=== PATIENT | female | born 2000 | race Two or more races ===

== ENCOUNTER 2020-01-14 10:52 | Emergency (ER) | payer OTHER, SELFPAY ==
--- NOTE | ~2020-01-14 | XR_ITS ---
EXAMINATION: XR ankle RT min 3V EXAM DATE: 01/14/2020 11:20 INDICATION: trauma 4 days ago fell in hole/pain med lateral . Initial encounter. TECHNIQUE: Right ankle frontal, lateral and oblique projections obtained and reviewed. There is no p rior study for comparison. FINDINGS: The right ankle mortise appears intact. There are no acute fractures or dislocations iden tified. There is no subcutaneous gas. The soft tissue is unremarkable. There are no radiopaque fo reign bodies. IMPRESSION: No acute osseous findings. Reviewed, dictated and finalized at location A. TIONAL ANALYST IMPRESSION: No acute osseous findings.
--- NOTE | 2020-01-14 10:56 | ED.LOWEXIN ---
HPI - Extremity Injury (Lower) General Chief Complaint: Extremity Injury, Lower Stated Complaint: right ankle pain Time Seen by Provider: 01/14/20 10:57 Source: patient and RN notes reviewed History of Present Illness HPI Narrative: Patient is a 19-year-old female that presents the urgent care with complaints of right ankle pain extending into the top of the right foot. Patient states that she rolled her ankle in a hole on the sidewalk outside of work on . Patient states this is not Workmen's Comp. related. States that she took 1 dose of ibuprofen yesterday for the swelling but otherwise has not continuously taken anything for pain. Patient denies of any other injuries from the incident. No other acute complaints. No acute distress noted. Patient ambulating. Patient aware of the plan of care. Some parts of this dictation were generated by voice recognition software and may contain typographical and/or grammatical inaccuracies. Related Data Home Medications Medication Instructions Recorded Confirmed ferrous sulfate 325 mg PO DAILY 01/14/20 01/14/20 levonorgestrel [Mirena] 1 device INTRAUTERINE ONCE 01/14/20 01/14/20 metformin 1,000 mg PO BID 01/14/20 01/14/20 phentermine 37.5 mg PO DAILY 01/14/20 01/14/20 spironolactone 50 mg PO BID 01/14/20 01/14/20 Allergies Allergy/AdvReac Type Severity Reaction Status Date / Time penicillin V Allergy Unknown Verified 02/08/12 09:27 Penicillins Allergy Unknown Unverified 05/19/15 08:34 tree nut Allergy Unknown Unverified 05/19/15 08:34 Review of Systems Review of Systems: Narrative: CONSTITUTIONAL: Denies fever, chills, or sweats. EYES: Denies visual changes, redness, or discharge. ENT: Denies rhinorrhea, congestion, sore throat, or otalgia. CARDIOVASCULAR: Denies chest pain, palpitations, or edema. RESPIRATORY: Denies cough or dyspnea. GASTROINTESTINAL: Denies abdominal pain, nausea, vomiting, or diarrhea. GENITOURINARY: Denies dysuria or hematuria. SKIN: Denies rash or itching. MUSCULOSKELETAL: Reports of right ankle pain and swelling. NEUROLOGIC: Denies headache, numbness, or weakness. All other systems reviewed are negative, except as documented in HPI. REPLACED BY [facility] Family History Family History (Updated 12/11/12 @ 09:27 by DOCTOR UNKNOWN) Other Diabetes mellitus Family history of arthritis Hypertension Social History Social History Smoking status: Never smoker Alcohol intake: never Comments At the time of my signature, I reviewed and agree with the nursing past medical, surgical, social, and family history. There is no relevant family history pertinent to the patient complaint. Exam Narrative: Exam Narrative: GENERAL: This is a well-nourished, well-developed patient, in no apparent distress. HEAD: normocephalic, atraumatic. EYES: PERRL. Sclera clear/white. Vision is grossly intact. EARS: External ears normal NOSE: External nose normal with no obvious nasal discharge, nares without redness, no rhinorrhea. THROAT: Mucous membranes moist NECK: Neck supple SKIN: warm, intact with no suspicious lesions or rash, good texture and turgor. NEURO: awake, alert, and oriented to person, place and time. There were no obvious focal neurologic abnormalities. EXTREMITIES: No obvious deformity to the right lower extremity. Very mild lateral malleolus edema and tenderness to both the lateral and medial aspect. Positive strong right pedal pulse with capillary refill less than 2 seconds. Range of motion within normal limits. Course Vital Signs Vital signs: Vital Signs Temperature 97.7 F 01/14/20 11:05 Pulse Rate 84 01/14/20 11:05 Respiratory Rate 18 01/14/20 11:05 Blood Pressure 130/72 01/14/20 11:05 Pulse Oximetry 98 01/14/20 11:05 Temperature 97.7 F 01/14/20 11:05 Pulse Rate 84 01/14/20 11:05 Respiratory Rate 18 01/14/20 11:05 Blood Pressure 130/72 01/14/20 11:05 Pulse Oximetry 98 01/14/20 11:05 Reviewed [facility] -
[2020-01-14 11:05] VITALS: BP 130/72; PULSE 84; RESP 18; TEMP 36.5; O2SAT 98
== END 2020-01-14 11:35 | disposition home or self-care (01) ==
PROVIDERS: Emergency Provider Nurse Practitioner Family; PCP Emergency Medicine
DX: S93.401A Sprain of unspecified ligament of right ankle, initial encounter (principal); S96.911A Strain of unspecified muscle and tendon at ankle and foot level, right foot, initial encounter; X50.9XXA Other and unspecified overexertion or strenuous movements or postures, initial encounter; D64.9 Anemia, unspecified; E28.2 Polycystic ovarian syndrome
CPT/HCPCS: 73610; 99213; G0463

== ENCOUNTER 2020-03-13 08:22 | Emergency (ER) | payer OTHER, SELFPAY ==
--- NOTE | 2020-03-13 08:39 | ED.URI ---
HPI - URI/Sore Throat General Chief Complaint: Upper Respiratory Infection Stated Complaint: Sore Throat Time Seen by Provider: 03/13/20 08:40 Source: patient Mode of arrival: ambulatory Limitations: no limitations History of Present Illness HPI Narrative: Chente Duncan is a 19 yo female with a PMH of PCOS, who comes to [facility] with severe sore throat and difficulty swallowing that started a day ago. She stated that she was congested yesterday but that is cleared up. She is unaware of any exposure to Covid and has a history of having frequent strep throat Plan is to swab her for strep throat but this is negative off her Covid test Related Data Home Medications Medication Instructions Recorded Confirmed ferrous sulfate 325 mg PO DAILY 01/14/20 03/13/20 metformin 1,000 mg PO BID 01/14/20 03/13/20 spironolactone 50 mg PO BID 01/14/20 03/13/20 levonorgestrel [Mirena] 1 device INTRAUTERINE ONCE 03/13/20 03/13/20 Allergies Allergy/AdvReac Type Severity Reaction Status Date / Time penicillin V Allergy Unknown Hives Verified 03/13/20 08:33 Penicillins Allergy Unknown Hives Verified 03/13/20 08:33 tree nut Allergy Unknown Anaphylaxis Verified 03/13/20 08:33 strawberry Allergy Itching Verified 03/13/20 08:33 Review of Systems Review of Systems: Narrative: CONSTITUTIONAL: Had fever, chills, sweats. EYES: Denies visual changes, redness, discharge. ENT: Denies rhinorrhea, congestion, has sore throat, otalgia. CARDIOVASCULAR: Denies chest pain, palpitations, edema. RESPIRATORY: Denies dyspnea, wheezing, cough GASTROINTESTINAL: Denies abdominal pain, nausea, vomiting, diarrhea. GENITOURINARY: Denies dysuria, hematuria, abnormal discharge SKIN: Denies rash or itching. NEUROLOGIC: Denies numbness, or focal weakness. PSYCHIATRIC: Denies anxiety or depression. [facility] Past Medical History Medical History Asthma Borderline diabetes mellitus Cubital tunnel syndrome Morbid (severe) obesity due to excess calories PCOS (polycystic ovarian syndrome) Surgical History Surgical History History of cholecystectomy 2013 S/P cubital tunnel release 2013 and 2014 Family History Family History Mother Celiac disease Other Diabetes mellitus Family history of arthritis Hypertension Social History Social History Social History: Single Smoking status: Never smoker Alcohol intake: current Substance use: never Substance use type: does not use Gender identity (if verbalized by the patient): Female Comments At time of signature, I agree with nursing past medical, surgical, social and family history. There is no relevant family history pertinent to the presenting complaint. Exam Narrative: Exam Narrative: GENERAL: This is a well-nourished, well-developed patient, in mild distress. HEAD: normocephalic, atraumatic. EYES: Sclera clear/white. Vision is grossly intact. EARS: External ears normal, auditory canals erythema, no serous drainage. Hearing grossly intact. NOSE: External nose normal without nasal discharge, nares without redness, no rhinorrhea. THROAT: Mucous membranes moist, posterior pharynx erythema with mild edema, bilateral submandibular lymph nodes NECK: Neck supple, tender CARDIOVASCULAR: Regular rate and rhythm without murmurs, gallops, or rubs. RESPIRATORY: Clear to auscultation. Breath sounds equal bilaterally. No wheezes, rales, or rhonchi. GASTROINTESTINAL: Abdomen soft, non-tender, SKIN: warm, intact with no suspicious lesions or rash, good texture and turgor. NEURO: awake, alert, and oriented to person, place and time. There were no obvious focal neurologic abnormalities. Steady gait EXTREMITIES: Normal range of motion. BACK: Nontender without deformity Course Course
[2020-03-13 08:41] VITALS: BP 113/63; PULSE 93; RESP 18; TEMP 36.5; O2SAT 99
== END 2020-03-13 09:30 | disposition home or self-care (01) ==
PROVIDERS: Emergency Provider Nurse Practitioner; PCP Family Medicine
DX: U07.1 COVID-19 (principal); J45.909 Unspecified asthma, uncomplicated; E28.2 Polycystic ovarian syndrome; E66.01 Morbid (severe) obesity due to excess calories; R73.03 Prediabetes
CPT/HCPCS: 87081; 87426; 87880; 99213; C9803; G0463

== ENCOUNTER 2020-03-17 21:26 | Emergency (ER) | payer OTHER, SELFPAY ==
[2020-03-17] VITALS (14 sets, daily range): BP systolic 116–151; BP diastolic 76–121; PULSE 93–104; RESP 18–35; TEMP 37.3; O2SAT 96–98
--- NOTE | ~2020-03-17 | XR_ITS ---
EXAMINATION: XR chest 1V portable INDICATION: Increasing shortness of breath, fever, COVID 19 TECHNIQUE: Portable AP chest at 2300 hours COMPARISON: 04/22/2016 FINDINGS: There are patchy airspace opacities throughout all lung zones. No pleural effusion or pneum othorax is identified. The cardiomediastinal silhouette is normal. IMPRESSION: 1. Diffuse lung disease, likely pneumonia. Reviewed, dictated and finalized at location A. ORY TUTOR
--- NOTE | 2020-03-17 21:49 | PC.NURSE ---
resting on stretcher. patient here with increased dyspnea. (+) covid on 03/13/20. low grade fevers. see initial assessment. taking tylenol at home. alert. oriented. no distress noted. on desk monitor. has call light in reach. waiting for further orders.
--- NOTE | 2020-03-17 23:16 | PC.NURSE ---
respiratory in room now. ABG's ordered. report given to Hussein REDDING.
[2020-03-17 23:24] LABS: Alveolar/Arterial O2 Gradient 27.3 mmHg; Base Excess ABG 0.3 mEq/l (+/-2.0); Device ROOM AIR; Fractional Inspired Oxygen 21 %; HCO3 ABG 24.2 mEq/l (22.0-26.0); Modified Allen's Test Pass; Oxygen Content ABG 20.6 %vol (16.0-22.0); Oxyhemoglobin 95.2 % THb (90.0-100.0); PCO2 ABG 36.8 mmHg (35.0-45.0); PO2 ABG 78.4 mmHg (80.0-100.0); PO2 FiO2 Ratio Arterial Blood 3.73 %; Site Drawn LEFT RADIAL; Total Hemoglobin 15.4 g/dL (12.0-18.0); pH ABG 7.435 (7.350-7.450)
--- NOTE | 2020-03-17 23:29 | ED.SOB ---
HPI - SOB/Dyspnea General Chief Complaint: Shortness of Breath/Dyspnea Stated Complaint: Covid+ shortness of breath/fever Time Seen by Provider: 03/17/20 22:46 Source: patient Mode of arrival: ambulatory Limitations: no limitations History of Present Illness HPI Narrative: 19 years old white female presents with shortness of breath for the last few days. Patient had Covid symptoms and March 11, positive Covid test March 12, was seen at urgent care and was started on Zithromax, albuterol inhaler, and dexamethasone. Patient reports that her shortness of breath is not getting better. Patient denies any nausea, vomiting, diarrhea, headache, chest pain or back pain. Patient works in [employer] business Related Data Home Medications Medication Instructions Recorded Confirmed ferrous sulfate 325 mg PO DAILY 01/14/20 03/13/20 metformin 1,000 mg PO BID 01/14/20 03/13/20 spironolactone 50 mg PO BID 01/14/20 03/13/20 levonorgestrel [Mirena] 1 device INTRAUTERINE ONCE 03/13/20 03/13/20 Allergies Allergy/AdvReac Type Severity Reaction Status Date / Time penicillin V Allergy Unknown Hives Verified 03/17/20 21:28 Penicillins Allergy Unknown Hives Verified 03/17/20 21:28 tree nut Allergy Unknown Anaphylaxis Verified 03/17/20 21:28 strawberry Allergy Itching Verified 03/17/20 21:28 Review of Systems Review of Systems: Narrative: CONSTITUTIONAL: Denies fever, chills, or sweats. EYES: Denies visual changes, redness, or discharge. ENT: Denies rhinorrhea, congestion, sore throat, or otalgia. CARDIOVASCULAR: Denies chest pain, palpitations, or edema. RESPIRATORY: Denies cough or dyspnea. GASTROINTESTINAL: Denies abdominal pain, nausea, vomiting, or diarrhea. GENITOURINARY: Denies dysuria or hematuria. SKIN: Denies rash or itching. MUSCULOSKELETAL: Denies back pain, joint pain, or myalgia. NEUROLOGIC: Denies headache, numbness, or weakness. PSYCHIATRIC: Denies anxiety or depression. [facility] Past Medical History Medical History Asthma Borderline diabetes mellitus Cubital tunnel syndrome Morbid (severe) obesity due to excess calories PCOS (polycystic ovarian syndrome) Surgical History Surgical History History of cholecystectomy 2013 S/P cubital tunnel release 2012 and 2013 Family History Family History Mother Celiac disease Other Diabetes mellitus Family history of arthritis Hypertension Social History Social History Social History: Single Smoking status: Never smoker Alcohol intake: current Substance use: never Substance use type: does not use Gender identity (if verbalized by the patient): Female Exam Narrative: Exam Narrative: General appearance: Well-developed, well-nourished Skin: Normal color Head: Normocephalic, nontraumatic Eyes: Clear conjunctiva ENT: Oropharynx normal, ears normal, nose normal Neck: Supple, nontender Chest and respiratory: Airway patent, no respiratory distress, no accessory muscle use few scattered rhonchi bilaterally Heart: Regular rate/rhythm Abdomen: Soft, nontender, no organomegaly, quiet bowel sounds Vascular: Normal peripheral pulses, normal capillary refill. Musculoskeletal: Normal range of motion, nontender back Neurologic: Alert and oriented ?3, WIRE MACHINE OPERATOR is normal as tested, no gross motor deficit Course Course Emergency Course: Stable Vital Signs Vital signs: Vital Signs Temperature 37.3 C 03/17/20 21:37 Pulse Rate 100 03/17/20 21:37 Respiratory Rate 18 03/17/20 21:37
[2020-03-18 00:10] VITALS: BP 138/79; PULSE 96; RESP 20; TEMP 36.6; O2SAT 97
== END 2020-03-18 00:11 | disposition home or self-care (01) ==
PROVIDERS: Emergency Provider Emergency Medicine; PCP Family Medicine
DX: U07.1 COVID-19 (principal); J12.82 Pneumonia due to coronavirus disease 2019; J45.909 Unspecified asthma, uncomplicated; R73.03 Prediabetes; E28.2 Polycystic ovarian syndrome; E66.01 Morbid (severe) obesity due to excess calories; Z68.43 Body mass index [BMI] 50.0-59.9, adult; Z79.84 Long term (current) use of oral hypoglycemic drugs
CPT/HCPCS: 36600; 71045; 82805; 99283

== ENCOUNTER 2020-04-11 20:34 | Emergency (ER) | payer OTHER, SELFPAY ==
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
[2020-04-11 20:50] VITALS: BP 137/68; PULSE 71; RESP 18; TEMP 36.2; O2SAT 99
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
[2020-04-11] MEDS: IBUPROFEN 400 MG TABLET 800 MG PO (21:45)
[2020-04-11] MEDS: methocarbamoL 750 MG TABLET PO (21:46)
[2020-04-12 00:11] VITALS: BP 129/82; PULSE 80; RESP 18; O2SAT 99
== END 2020-04-12 00:13 | disposition home or self-care (01) ==
PROVIDERS: Emergency Provider Emergency Medicine; PCP Family Medicine
DX: S13.4XXA Sprain of ligaments of cervical spine, initial encounter (principal); J45.909 Unspecified asthma, uncomplicated; R73.03 Prediabetes; E66.01 Morbid (severe) obesity due to excess calories; Z68.43 Body mass index [BMI] 50.0-59.9, adult; E28.2 Polycystic ovarian syndrome; Z79.84 Long term (current) use of oral hypoglycemic drugs; V48.6XXA Car passenger injured in noncollision transport accident in traffic accident, initial encounter
CPT/HCPCS: 72040; 99283; A9270

== ENCOUNTER → 2020-05-01 10:54 | Outpatient (CLI) | payer OTHER, SELFPAY ==
--- NOTE | ~2020-05-01 | XR_ITS ---
EXAMINATION: XR chest 2V DATE: 05/01/2020 11:07 INDICATION: Pneumonia, unspecified organism. TECHNIQUE: Frontal and lateral views of the chest were obtained. COMPARISON: Chest single view 03/17/2020, CT abdomen and pelvis 05/07/2015 FINDINGS: The chest demonstrates clear lungs without pneumonia, pleural effusion, or pneumothorax. Th e heart size is normal. IMPRESSION: 1. No acute cardiopulmonary disease. Reviewed, dictated and finalized at location A. DATABASE DEVELOPER
== END ==
PROVIDERS: PCP Family Medicine; Visit Provider Family Medicine
DX: J18.9 Pneumonia, unspecified organism (principal)
CPT/HCPCS: 71046

== ENCOUNTER 2020-06-23 08:24 | Outpatient (CLI) | payer OTHER, SELFPAY | END 2020-06-23 08:25 | disposition home or self-care (01) | LOC: ANHCOVIDVC 08:24 | PROVIDERS: PCP Family Medicine | DX: Z23 Encounter for immunization (principal) | CPT/HCPCS: 0001A; 91300 ==

== ENCOUNTER 2020-07-14 08:17 | Outpatient (CLI) | payer OTHER, SELFPAY | END 2020-07-14 08:18 | disposition home or self-care (01) | LOC: ANHCOVIDVC 08:18 | PROVIDERS: PCP Family Medicine | DX: Z23 Encounter for immunization (principal) | CPT/HCPCS: 0002A; 91300 ==

== ENCOUNTER 2020-09-17 15:08 | Emergency (ER) | payer OTHER, SELFPAY ==
[2020-09-17 15:18] VITALS: BP 120/76; PULSE 78; RESP 16; TEMP 36.8; O2SAT 99
--- NOTE | 2020-09-17 16:01 | ED.URI ---
HPI - URI/Sore Throat General Chief Complaint: Upper Respiratory Infection Stated Complaint: sore throat History of Present Illness HPI Narrative: Record this is a 20-year-old female comes in complaining of a sore throat states that she has had it for approximately 24 hours. Patient states that yesterday she had allergic reaction took some medicine and her symptoms subsided but when she woke up this morning her sore throat was worse Related Data Home Medications Medication Instructions Recorded Confirmed ferrous sulfate 325 mg PO DAILY 01/14/20 04/25/20 metformin 1,000 mg PO BID 01/14/20 04/25/20 spironolactone 50 mg PO BID 01/14/20 04/25/20 levonorgestrel [Mirena] 1 device INTRAUTERINE ONCE 03/13/20 04/25/20 meloxicam 15 mg tablet 15 mg PO BID tablet 04/21/20 04/25/20 fluticasone propion-salmeterol INHALATION 09/17/20 [Advair Diskus] Allergies Allergy/AdvReac Type Severity Reaction Status Date / Time penicillin V Allergy Unknown Hives Verified 04/21/20 10:57 Penicillins Allergy Unknown Hives Verified 04/21/20 10:57 tree nut Allergy Unknown Anaphylaxis Verified 04/21/20 10:57 strawberry Allergy Itching Verified 04/21/20 10:57 Review of Systems Review of Systems: Narrative: CONSTITUTIONAL: Denies fever, chills, or sweats. EYES: Denies visual changes, redness, or discharge. ENT: Denies rhinorrhea, congestion, reports sore throat, or otalgia. CARDIOVASCULAR:Denies chest pain, palpitations, or edema. RESPIRATORY: Denies cough or dyspnea. GASTROINTESTINAL: Denies abdominal pain, nausea, vomiting, or diarrhea. GENITOURINARY: Denies dysuria or hematuria. SKIN:[Denies rash or itching. MUSCULOSKELETAL:Denies back pain, joint pain, or myalgia. NEUROLOGIC: Denies headache, numbness, or weakness. PSYCHIATRIC:Denies anxiety or depression [facility] Past Medical History Medical History Asthma Borderline diabetes mellitus Cubital tunnel syndrome Morbid (severe) obesity due to excess calories PCOS (polycystic ovarian syndrome) Surgical History Surgical History History of cholecystectomy 2013 S/P cubital tunnel release 2013 and 2014 Family History Family History Mother Celiac disease Other Diabetes mellitus Family history of arthritis Hypertension Social History Social History (Updated 04/21/20 @ 10:59 by Sandy Kaplan CMA) Social History: Single Second hand tobacco smoke exposure: No Alcohol intake: current Alcohol use details: Occasionally Substance use: never Substance use type: does not use Gender identity (if verbalized by the patient): Female Comments At time as signature, I have reviewed and agree with nursing past medical, social, surgical and family history. Please see nursing chart for further information. There is no relevant family history pertinent to the presenting complaint. Exam Narrative: Exam Narrative: GENERAL:Well-appearing, well-nourished, and in no acute distress. HEAD:Normocephalic, atraumatic. EYES: PERRLA and EOMI. ENT: Nares clear, no rhinorrhea or epistaxis. Mucous membranes moist. Pharyngeal erythema tonsillar exudate bilaterally TM clear fluid NECK: Supple. CHEST: Clear to auscultation. No respiratory distress. HEART: Regular rate and rhythm. ABDOMEN: Soft, nontender, nondistended, normal active bowel sounds. EXTREMITIES: Normal range of motion. No edema. SKIN: Warm, dry, no rash. NEURO: No focal deficits. Alert and oriented x3. Course WOOD SCALER/PA Physician Supervision Strep negative culture sent Vital Signs Vital signs: Vital Signs Temperature 98.2 F 09/17/20 15:18 Pulse Rate 78 09/17/20 15:18 Respiratory Rate 16 09/17/20 15:18 Blood Pressure 120/76 09/17/20 15:18 Pulse Oximetry 99 09/17/20 15:18 Temperature 98.2 F 09/17/20 15:18 Pulse Rate 78
== END 2020-09-17 16:15 | disposition home or self-care (01) ==
PROVIDERS: Emergency Provider Nurse Practitioner Family; PCP Family Medicine
DX: J03.90 Acute tonsillitis, unspecified (principal); J45.909 Unspecified asthma, uncomplicated; E28.2 Polycystic ovarian syndrome; E66.01 Morbid (severe) obesity due to excess calories
CPT/HCPCS: 87081; 87880; 99213; G0463

== ENCOUNTER 2020-11-05 13:07 | Emergency (ER) | payer OTHER, SELFPAY ==
[2020-11-05 13:27] VITALS: BP 134/55; PULSE 87; RESP 16; TEMP 36.6; O2SAT 99
--- NOTE | 2020-11-05 15:19 | ED.URI ---
HPI - URI/Sore Throat General Chief Complaint: Upper Respiratory Infection Stated Complaint: runny nose /sore throat Source: patient and RN notes reviewed Mode of arrival: ambulatory Limitations: no limitations History of Present Illness HPI Narrative: 20 year old female who presents to [facility] care with complaints of runny nose and sore throat for the past 2 days, states that she did have COVID February of 2020 and also is vaccinated. Patient states that she does have past history of strep throat, but throat pain is in very back of throat different than prior throat pain.Patient reports that she has had a productive cough at times, has been taking Zyzal and Sudafed for her symptoms. MD elicited complaint: cough, sore throat, rhinorrhea and nasal congestion Related Data Home Medications Medication Instructions Recorded Confirmed metformin 1,000 mg PO BID 01/14/20 11/05/20 levonorgestrel [Mirena] 1 device INTRAUTERINE ONCE 03/13/20 11/05/20 Allergies Allergy/AdvReac Type Severity Reaction Status Date / Time penicillin V Allergy Unknown Hives Verified 11/06/20 15:13 Penicillins Allergy Unknown Hives Verified 11/06/20 15:13 tree nut Allergy Unknown Anaphylaxis Verified 11/06/20 15:13 strawberry Allergy Itching Verified 11/06/20 15:13 Review of Systems Review of Systems: CONSTITUTIONAL: Denies fever, chills, or sweats. EYES: Denies visual changes, redness, or discharge. ENT:Positive rhinorrhea, congestion, sore throat, no otalgia. CARDIOVASCULAR: Denies chest pain, palpitations, or edema. RESPIRATORY:Positive cough no dyspnea or any wheezing GASTROINTESTINAL: Denies abdominal pain, nausea, vomiting, or diarrhea. GENITOURINARY: Denies dysuria or hematuria. SKIN: Denies rash or itching. MUSCULOSKELETAL: Denies back pain, joint pain, or myalgia. NEUROLOGIC: Denies headache, numbness, or weakness. PSYCHIATRIC: Denies anxiety or depression. All systems reviewed & are unremarkable except as noted in HPI and below PMFSH Past Medical History Medical History (Updated 11/06/20 @ 15:31 by Sampson Boo MD) Abdominal pain Alternating constipation and diarrhea Asthma Borderline diabetes mellitus Cubital tunnel syndrome Morbid (severe) obesity due to excess calories Morbid obesity Nausea Overeating PCOS (polycystic ovarian syndrome) Pneumonia due to COVID-19 virus -2020 Surgical History Surgical History History of cholecystectomy 2013 S/P cubital tunnel release 2012 and 2013 Family History Family History Mother Celiac disease Other Diabetes mellitus Family history of arthritis Hypertension Social History Social History Social History: Single Smoking status: Never smoker Second hand tobacco smoke exposure: No Alcohol intake: current Alcohol use details: Occasionally Substance use: never Substance use type: does not use Gender identity (if verbalized by the patient): Female Sexual Orientation (if Verbalized by the Patient): Straight or Heterosexual Exam Narrative: GENERAL: Well-appearing, well-nourished, and in no acute distress. HEAD: Normocephalic, atraumatic. EYES: PERRLA and EOMI. ENT: Nares swollen with clear rhinorrhea no epistaxis. Mucous membranes moist. TMs normal with good light reflex, throat red with no exudates or lesions tonsils not enlarged NECK: Supple. No lymphadenopathy CHEST: Clear to auscultation. No respiratory distress. SaO2 99% HEART: Regular rate and rhythm. No murmur heard. Normal peripheral pulses. ABDOMEN: Soft, nontender, nondistended, normal active bowel sounds. EXTREMITIES: Normal range of motion. No edema. SKIN: Warm, dry, no rash. NEURO: No focal deficits. Alert and oriented x3. Course Vital Signs Vital signs: Vital Signs Temperature 36.6 C 11/05/20
== END 2020-11-05 16:06 | disposition home or self-care (01) ==
PROVIDERS: Emergency Provider Registered Nurse; PCP Family Medicine
DX: J06.9 Acute upper respiratory infection, unspecified (principal); J02.9 Acute pharyngitis, unspecified; J45.909 Unspecified asthma, uncomplicated; E28.2 Polycystic ovarian syndrome; E66.01 Morbid (severe) obesity due to excess calories; Z68.43 Body mass index [BMI] 50.0-59.9, adult
CPT/HCPCS: 87070; 87880; 99213; G0463

== ENCOUNTER 2020-11-28 01:53 | Day surgery (SDC) | payer OTHER, SELFPAY ==
[2020-11-18 08:49] VITALS: BMI 54.1
[2020-11-28 12:24] VITALS: BP 127/75; PULSE 70; RESP 18; TEMP 36.2; O2SAT 97
--- NOTE | 2020-11-28 12:40 | WPDHPUPDATE1 ---
History and Physical Update Update Date/Time: 11/28/20 12:40 History and Physical has been reviewed, including an updated exam of the patient. There are NO changes in the patient's condition. Risks, benefits, and alternatives have been discussed and questions answered. Patient agrees to proceed with procedure.
--- NOTE | 2020-11-28 12:41 | WPDANESEPPF ---
Anes - Initial Pre Proc Eval Procedure: Operation Date: 11/28/20 13:30 Proposed Procedures p Esophagogastroduodenoscopy - Sampson Boo MD Date/Time: 11/28/20 12:41 Surgeon: Sampson Boo MD Pre Op Diagnosis: abdominal pain, nausea Patient Data Age: 20 Gender: F Height: 1.63 m Weight: 139.2 kg Last Vital Signs Temp 97.2 F L 11/28/20 12:24 Pulse 70 11/28/20 12:24 Resp 18 11/28/20 12:24 BP 127/75 11/28/20 12:24 Pulse Ox 97 11/28/20 12:24 Allergies Allergy/AdvReac Type Severity Reaction Status Date / Time strawberry Allergy Mild Itching Verified 11/28/20 12:23 Penicillins Allergy Unknown Hives Verified 11/28/20 12:23 tree nut Allergy Unknown Anaphylaxis Verified 11/28/20 12:23 Home Medications Medication Instructions Recorded Confirmed Type albuterol sulfate 1 puff INHALATION QID PRN #8.5 g 03/13/20 11/18/20 Rx levonorgestrel [Mirena] 1 device INTRAUTERINE ONCE 03/13/20 11/18/20 History ipratropium 0.5 mg-albuterol 3 mg 3 ml INHALATION QID PRN #15 ml 04/10/20 11/18/20 Rx (2.5 mg base)/3 mL nebulization soln nebulizers #1 ea 04/10/20 11/05/20 Rx fluticasone 250 mcg-salmeterol 50 1 inh INHALATION Q12H #60 ea 06/06/20 11/18/20 Rx mcg/dose blistr powdr for inhalation phentermine 37.5 mg tablet 37.5 mg PO DAILY #30 tablet 09/30/20 11/18/20 Rx metformin 500 mg PO BID 11/18/20 11/18/20 History Patient hx anesthesia problems: none Family hx anesthesia problems: none Results Review: All pre-operative results and documents have been reviewed as part of the pre-operative evaluation. [facility] Past Medical History Medical History (Updated 11/06/20 @ 15:31 by Sampson Boo MD) Abdominal pain Alternating constipation and diarrhea Asthma Borderline diabetes mellitus Cubital tunnel syndrome Morbid (severe) obesity due to excess calories Morbid obesity Nausea Overeating PCOS (polycystic ovarian syndrome) Pneumonia due to COVID-19 virus -2020 Surgical History Surgical History History of cholecystectomy 2013 S/P cubital tunnel release 2012 and 2013 Family History Family History Mother Celiac disease Other Diabetes mellitus Family history of arthritis Hypertension Social History Social History Social History: Single Smoking status: Never smoker Second hand tobacco smoke exposure: No Alcohol intake: current Alcohol use details: Occasionally Substance use: never Substance use type: does not use Living arrangements: with family Gender identity (if verbalized by the patient): Female Sexual Orientation (if Verbalized by the Patient): Straight or Heterosexual Spiritual care concerns: No Anes - Eval Final PreProcedure Day of Procedure 11/28/20 12:41 Patient weight: super morbidly obese Heart: regular rate and rhythm Lungs: clear to auscultation Airway: Mallampati scale class II Neurological: alert and oriented Last oral intake: >/= 8 hours ASA classification: III Emergent: no Anesthetic plan: proceed Anesthesia type and monitoring: general GIVS and standard monitoring Results Review: All pre-operative results and documents have been reviewed as part of the pre-operative evaluation. Informed Consent: The patient's anesthetic plan and its attendant risks and benefits were discussed with the patient/family/POA. Questions were solicited and answers provided to the satisfaction of the patient/family/POA.
[2020-11-28] MEDS: LACTATED RINGERS 1,000 ML 150 ML IV CONT (12:43)
[2020-11-28 13:14] LABS: Beta HCG Quantitative < 2.39 mIU/ML
[2020-11-28 13:25] VITALS: BP 76/35; PULSE 83; RESP 28; O2SAT 99
[2020-11-28 13:35] VITALS: BP 86/41; PULSE 72; RESP 24; O2SAT 95
[2020-11-28 13:45] VITALS: BP 93/51; PULSE 65; RESP 24; O2SAT 98
[2020-11-28 13:55] VITALS: BP 104/55; RESP 17; O2SAT 100
== END 2020-11-28 14:27 | disposition home or self-care (01) ==
PROVIDERS: PCP Family Medicine; Visit Provider Internal Medicine Gastroenterology
PROC: 0DJ08ZZ Inspection of Upper Intestinal Tract, Via Natural or Artificial Opening Endoscopic (ICD-10-PCS; CPT 43235; principal; 2020-11-28 13:30)
DX: R10.30 Lower abdominal pain, unspecified (principal); K58.9 Irritable bowel syndrome, unspecified; E28.2 Polycystic ovarian syndrome; Z86.16 Personal history of COVID-19; J45.909 Unspecified asthma, uncomplicated; E66.01 Morbid (severe) obesity due to excess calories; Z68.43 Body mass index [BMI] 50.0-59.9, adult; Z90.49 Acquired absence of other specified parts of digestive tract; K90.41 Non-celiac gluten sensitivity; Z79.84 Long term (current) use of oral hypoglycemic drugs; Z79.51 Long term (current) use of inhaled steroids
CPT/HCPCS: 43239; 36415; 84702; 88305; J7120